=== PATIENT | female | born 1990 | race Caucasian/White ===

== ENCOUNTER 2016-09-09 07:23 | Emergency (ER) | payer BC ==
[2016-09-09] MEDS ORDERED: ACETAMINOPHEN TAB 500 MG TAB PO STA (08:18)
[2016-09-09] MEDS ORDERED: IBUPROFEN 600 MG TAB PO STA (08:18)
--- NOTE | 2016-09-09 08:23 | ED ---
General Adult HPI - General Chief complaint: Upper Respiratory Infection Stated complaint: [place] Time Seen by Provider: 09/09/16 08:10 Source: patient, RN notes reviewed Mode of arrival: ambulatory Limitations: no limitations - History of Present Illness Initial comments: Patient 26-year-old female who presents emergency room today with a chief complaint of cough congestion over the last 2 days. Does admit that it started with a sore throat. States it hurts when she swallows. States progressed to a cough and congestion. Does admit to rhinorrhea. Patient states she has not taken any Tylenol or Motrin today. She denies any other complaints or symptoms at this time. Patient denies any recent shortness of breath, chest pain, back pain, abdominal pain, nausea or vomiting, numbness or tingling, dysuria or hematuria, constipation or diarrhea, headaches or visual changes, or any other complaints. - Related Data Home Medications Medication Instructions Recorded Confirmed D-Methorphan/Acetamin/Doxylamn 1 cap PO ONCE PRN 09/09/16 09/09/16 [[facility] Nyquil Liquicaps] guaiFENesin [Mucinex] 600 - 1,200 mg PO Q12H PRN 09/09/16 09/09/16 Allergies Allergy/AdvReac Type Severity Reaction Status Date / Time codeine AdvReac Vomiting Verified 09/09/16 07:43 morphine AdvReac Rash/Hives Verified 09/09/16 07:43 Review of Systems ROS Statement: Those systems with pertinent positive or pertinent negative responses have been documented in the HPI. ROS Other: All systems not noted in ROS Statement are negative. Past Medical History Past Medical History: No Reported History History of Any Multi-Drug Resistant Organisms: None Reported Past Surgical History: Appendectomy Past Psychological History: No Psychological Hx Reported Smoking Status: Never smoker Past Alcohol Use History: None Reported Past Drug Use History: None Reported General Exam - General Exam Comments Initial Comments: General: The patient is awake and alert, in no distress, and does not appear acutely ill. Eye: Pupils are equal, round and reactive to light, extra-ocular movements are intact. No nystagmus. There is normal conjunctiva bilaterally. No signs of icterus. Ears, nose, mouth and throat: There are moist mucous membranes and no oral lesions. Neck: The neck is supple, there is no tenderness or JVD. Cardiovascular: There is a regular rate and rhythm. No murmur, rub or gallop is appreciated. Respiratory: Lungs are clear to auscultation, respirations are non-labored, breath sounds are equal. No wheezes, stridor, rales, or rhonchi. Musculoskeletal: Normal ROM, no tenderness. Strength 5/5. Sensation intact. Pulses equal bilaterally 2+. Neurological: A&O x 3. CN II-XII intact, There are no obvious motor or sensory deficits. Coordination appears grossly intact. Speech is normal. Skin: Skin is warm and dry and no rashes or lesions are noted. Psychiatric: Cooperative, appropriate mood & affect, normal judgment. Limitations: no limitations Course Vital Signs 09/09/16 07:28 Temperature 100.7 F H Pulse Rate 120 H Respiratory 20 Rate Blood Pressure 176/96 O2 Sat by Pulse 96 Oximetry Medical Decision Making - Medical Decision Making Patient reexamined at this time shows no signs of distress. Chest x-rays negative. Strep test negative. Patient advised most likely viral illness. Advised to continue Tylenol Motrin increase oral fluids. Advised return or follow-up the family doctor for any other concerns. - Lab Data Lab Results 09/09/16 Range/Units 08:32 Group A Strep Rapid Negative (Negative) Disposition Clinical Impression: Upper respiratory infection Disposition: HOME SELF-CARE Condition: Good Instructions: Upper Respiratory Infection (ED) Additional Instructions: Please use medication as discussed. Please follow-up with family doctor in the next 2 days of symptoms have not improved. Please return to emergency room if the symptoms increase or worsen or for any other concerns. Referrals: None,Stated [Primary Care Provider] - 1-2 days Sonam Kirby MD [STAFF PHYSICIAN] - 1-2 days Time of Disposition: 09:07
--- NOTE | 2016-09-09 08:48 | XR ---
EXAMINATION TYPE: XR chest 2V DATE OF EXAM: 09/09/2016 8:44 AM COMPARISON: NONE HISTORY: Shortness of breath, cough, and congestion for one week. TECHNIQUE: Frontal and lateral views of the chest are obtained. FINDINGS: There is no focal air space opacity, pleural effusion, or pneumothorax seen. The cardiac silhouette size is within normal limits. The osseous structures are intact. IMPRESSION: No suspicious acute pulmonary process.
[2016-09-09 09:22] VITALS: BP 152/74; PULSE 94; RESP 17; TEMP 99.1
== END 2016-09-09 09:22 | disposition home or self-care (01) ==
LOC: EDSEX → EC 07:23
DX: J06.9 Acute upper respiratory infection, unspecified (principal); R05 Cough; Z88.5 Allergy status to narcotic agent
CPT/HCPCS: 71020; 87081; 87430; 99283